=== PATIENT | female | born 1955 | race Caucasian/White ===

== ENCOUNTER → 2017-01-29 | Outpatient (CLI) | payer BC ==
--- NOTE | 2017-01-30 11:45 | MM ---
Reason for exam: screening (asymptomatic). Last mammogram was performed 4 years and 11 months ago. History: Patient is postmenopausal and had first child at age 30. Family history of breast cancer in brother at age 61. Excisional biopsy of the right breast, 2002. Reductions of both breasts, 2001. Physical Findings: A clinical breast exam by your physician is recommended on an annual basis and results should be correlated with mammographic findings. MG Screening Mammo w CAD Bilateral CC and MLO view(s) were taken. Prior study comparison: March 04, 2012, bilateral digital screening mammo w/CAD. June 29, 2010, bilateral digital screening mammogram. There are scattered fibroglandular densities. No significant changes when compared with prior studies. ASSESSMENT: Benign, BI-RAD 2 RECOMMENDATION: Routine screening mammogram of both breasts in 1 year.
== END | disposition home or self-care (01) ==
LOC: RADMAMWWP 13:27
PROVIDERS: ATTEND Obstetrics & Gynecology
DX: Z12.31 Encounter for screening mammogram for malignant neoplasm of breast (principal)

== ENCOUNTER 2017-02-15 09:16 | Day surgery (SDC) | payer BC ==
[2017-02-14 08:32] VITALS: BMI 34.3
[~2017-02-15 09:16] MED LIST: LACTATED RINGERS 1,000 ML IV SCH
[2017-02-15 10:40] VITALS: TEMP 96.6
[2017-02-15] MEDS ORDERED: PROPOFOL 10 MG/ML 20 ML VIAL IV ONE (11:18)
[2017-02-15] MEDS ORDERED: LIDOCAINE 1% INJ 10MG/ML (20 ML MDV) ONE (11:18)
[2017-02-15] MEDS ORDERED: LIDOCAINE 1% 20 ML VIAL (10MG/ML) FOR IV START INTRADERMA ONE (11:19)
--- NOTE | 2017-02-15 11:40 | P.PCN ---
Date of Procedure: 02/15/17 Procedure(s) Performed: Brief history: Patient is a pleasant 62-year-old white female, scheduled for an elective upper endoscopy as well as colonoscopy as a part of evaluation of GERD and screening for colorectal neoplasia. Procedure performed: Esophagogastroduodenoscopy with biopsy Colonoscopy with snare polypectomy Preoperative diagnosis: GERD Screening for colon cancer Anesthesia: MAC Procedure: After informed consent was obtained from the patient was brought into the endoscopy unit and IV sedation was administered by anesthesia under continuous monitoring. Initially upper endoscopy was done. The Olympus GF 160 video endoscope was inserted inserted into the mouth and esophagus intubated without any difficulty and was gradually advanced into the stomach and duodenum and carefully examined. The bulb and second part of the duodenum appeared normal. The scope was then withdrawn into the stomach adequately insufflated with air and upon careful examination the antrum and body, cardia and fundus appeared normal. The scope was then withdrawn into the esophagus. The GE junction was located at 38 cm to the incisors. It appeared regular with superficial erosions consistent with LA grade B reflux esophagitis. Rest of the esophagus appeared normal and the patient tolerated the procedure well. At this time the patient continued to remain sedation. Initial digital rectal examination was normal. Olympus CF 160 video colonoscope was then inserted into the rectum and gradually advanced to the cecum without any difficulty. Careful examination was performed as the scope was gradually being withdrawn. The prep was excellent. In the base of the cecum there was a 1 cm flat polyp that was removed by snare polypectomy. The cecum, ascending colon, transverse colon, descending colon, sigmoid colon and rectum appeared normal. Retroflexion was performed in the rectum and no lesions were noted. Patient tolerated the procedure well. Impression: 1. Upper endoscopy revealed mild antral gastritis and LA grade B reflux esophagitis. 2. Colonoscopy revealed 1 cm cecal polyp status post polypectomy. Rest of the colon appeared normal. Recommendations: Findings of this examination were discussed with the patient as well as her family. she was advised to follow with the biopsy results. She will continue with Prilosec 20 mg daily and follow antireflux measures. If the biopsy of the colon polyp shows a tubular adenoma she can have a repeat colonoscopy in 5 years.
[2017-02-15 11:45] VITALS: RESP 16
[2017-02-15 12:13] VITALS: BP 124/73; PULSE 56
== END 2017-02-15 12:20 | disposition home or self-care (01) ==
LOC: ORWHC2ENDO 09:16
PROVIDERS: ATTEND Internal Medicine Gastroenterology
DX: Z12.11 Encounter for screening for malignant neoplasm of colon (principal); D12.0 Benign neoplasm of cecum; K21.0 Gastro-esophageal reflux disease with esophagitis; K29.50 Unspecified chronic gastritis without bleeding; Z79.899 Other long term (current) drug therapy
CPT/HCPCS: 88305; 88342; 45385; 43239; J2001; J2704

== ENCOUNTER → 2018-01-01 | Outpatient (CLI) | payer BC ==
[2018-01-01 10:03] LABS: INR 1.1 (<1.2); Partial Thromboplastin Time 25.1 sec (22.0-30.0); Prothrombin Time 10.3 sec (9.0-12.0)
[2018-01-01 10:07] LABS: Appearance,Urine Cloudy (Clear); Bacteria,Urine Rare /hpf; Bilirubin,Urine Negative (Negative); Blood,Urine Negative (Negative); Color,Urine Yellow; Glucose,Urine (UA) Negative (Negative); Ketones,Urine 2+ (Negative); Leukocyte Esterase,Urine Small (Negative); Mucus,Urine Few /hpf; PH, Urine 5.5 (5.0-8.0); Protein,Urine Trace (Negative); RBC,Urine 6 /hpf (0-5); Specific Gravity,Urine 1.016 (1.001-1.035); Squamous Epithelial Cell,Urine 7 /hpf (0-4); WBC,Urine 6 /hpf (0-5)
[2018-01-01 11:05] LABS: ALT 23 U/L (9-52); AST 24 U/L (14-36); Albumin 4.4 g/dL (3.5-5.0); Alkaline Phosphatase 97 U/L (38-126); Anion Gap 15 mmol/L; Blood Urea Nitrogen 12 mg/dL (7-17); Calcium 10.5 mg/dL (8.4-10.2); Carbon Dioxide 25 mmol/L (22-30); Chloride 104 mmol/L (98-107); Glucose 91 mg/dL (74-99); Potassium 4.9 mmol/L (3.5-5.1); Sodium 144 mmol/L (137-145); Total Bilirubin 0.4 mg/dL (0.2-1.3); Total Protein 7.8 g/dL (6.3-8.2)
== END | disposition home or self-care (01) ==
LOC: LABPAT 08:32
PROVIDERS: ATTEND Orthopaedic Surgery
DX: Z01.812 Encounter for preprocedural laboratory examination (principal)
CPT/HCPCS: 36415; 80053; 81001; 85610; 85730; 87070

== ENCOUNTER → 2018-01-01 | Outpatient (CLI) | payer BC ==
[2018-01-01 09:58] LABS: Basophils % (A) 0 %; Eosinophils # (A) 0.2 k/uL (0-0.7); Eosinophils % (A) 2 %; HCT 44.4 % (34.0-46.0); HGB 14.3 gm/dL (11.4-16.0); Lymphocytes # (A) 3.2 k/uL (1.0-4.8); Lymphocytes % (A) 42 %; MCH 27.8 pg (25.0-35.0); MCHC 32.2 g/dL (31.0-37.0); MCV 86.3 fL (80.0-100.0); Mean Platelet Volume 8.4; Monocytes # (A) 0.3 k/uL (0-1.0); Monocytes % (A) 4 %; Neutrophils # (A) 3.9 k/uL (1.3-7.7); Neutrophils % (A) 50 %; Platelet Count 299 k/uL (150-450); RBC 5.14 m/uL (3.80-5.40); RDW 13.5 % (11.5-15.5); WBC 7.7 k/uL (3.8-10.6)
== END | disposition home or self-care (01) ==
LOC: LABWHC1 08:35
PROVIDERS: ATTEND Family Medicine
DX: Z01.812 Encounter for preprocedural laboratory examination (principal); E78.5 Hyperlipidemia, unspecified; K21.9 Gastro-esophageal reflux disease without esophagitis
CPT/HCPCS: 36415; 80061; 83735; 85025

== ENCOUNTER 2018-01-13 10:56 | Day surgery (SDC) | payer BC ==
[2018-01-03 14:11] VITALS: BMI 29.2
[~2018-01-13 10:56] MED LIST changes: +BISACODYL 10 MG SUPP RECTAL PRN; +DIAZEPAM 5 MG TAB PO PRN; +HYDROcodone/APAP 5-325MG 1 EACH TAB PO PRN; -LACTATED RINGERS 1,000 ML IV SCH; +MAGNESIUM HYDROXIDE 2,400 MG/10 ML CUP PO PRN; +MELOXICAM 7.5 MG TAB PO ONE; +MIDAZOLAM 2 MG/2 ML VIAL IV PRN; +MORPHINE SULFATE/PF 10MG/10ML VL IVP PRN; +NA PHOS,M-B/NA PHOS,DI-BA 133 ML ENEMA RECTAL PRN; +NALOXONE 0.4 MG/ML 1 ML VIAL IV PRN; +ONDANSETRON 4 MG/2 ML VIAL IVP PRN; +ROPIVACAINE 246.25 MG, EPINEPHrine 0.5 MG, KETOROLAC 30 MG, cloNIDine HCL/PF 80 MCG, WA... MISCELLANE ONE; +SCOPOLAMINE 1.5MG/72HR PATCH TRANSDERM ONE; +TRANEXAMIC ACID 1,000 MG in SODIUM CHLORIDE 0.9% 50 ML IVPB ONE; +ceFAZolin IN SWFI 2 GM/20 ML SYRINGE IVP ONE; +fentaNYL (PF) 50 MCG/ML 2 ML AMP IV PRN; +hydrOXYzine PAMOATE 25 MG CAP PO PRN
[2018-01-13] MEDS: LACTATED RINGERS 1,000 ML IV SCH (11:22)
[2018-01-13] MEDS ORDERED: LIDOCAINE 1% 20 ML VIAL (10MG/ML) FOR IV START INTRADERMA ONE (11:23)
[2018-01-13] MEDS: ACETAMINOPHEN TAB 500 MG TAB PO ONE ×2 (11:39→16:52)
[2018-01-13] MEDS: ONDANSETRON 4 MG/2 ML VIAL IVP ONE ×2 (11:41→16:53)
[2018-01-13] MEDS: DEXAMETHASONE SOD PHOSPHATE 10 MG/ML 1 ML VIAL IV ONE ×2 (11:41→16:53)
[2018-01-13] MEDS ORDERED: ROPIVACAINE 1,100 MG, SODIUM CHLORIDE 0.9% 330 ML MISCELLANE PRN ×2 (12:56)
[2018-01-13] MEDS ORDERED: MIDAZOLAM 2 MG/2 ML VIAL ONE (12:59)
[2018-01-13] MEDS ORDERED: PROPOFOL 10 MG/ML 20 ML VIAL IV ONE (12:59)
[2018-01-13] MEDS ORDERED: TRANEXAMIC ACID 1,000 MG/10 ML VIAL ONE (12:59)
[2018-01-13] MEDS ORDERED: SODIUM CHLORIDE 0.9% 100 ML BAG ONE (12:59)
[2018-01-13] MEDS ORDERED: ePHEDrine SULFATE/0.9% NACL/PF 50 MG/5 ML SYRINGE IV ONE (12:59)
[2018-01-13] MEDS ORDERED: fentaNYL (PF) 50 MCG/ML 2 ML AMP ONE (12:59)
--- NOTE | 2018-01-13 12:59 | P.ONQ ---
Anesthesiology Proc Note - PNB - Peripheral Nerve Block Performed Left Adductor Canal Indication: Acute Post-Operative Pain, Dx/Pain Location (Left Knee) Sedation Type: Sedate with meaningful contact maintained Preparation: Sterile Dressing Position: Supine Catheter: Indwelling Needle Types: Other (see comment) (Sara) Needle Size: 100mm (4") Needle Gauge: 18 Injectate: 0.5% Ropivacaine (see comment for volume) (30 cc) Pain Paresthesia on Injection Noted: No Resistance on Injection: Normal Events: Uneventful and Well Tolerated
[2018-01-13] MEDS ORDERED: ceFAZolin 3,000 MG in SODIUM CHLORIDE 0.9% IRRIGATIO 3,000 ML IRRIGATION ONE (13:27)
--- NOTE | 2018-01-13 14:22 | P.OP ---
Date of Procedure: 01/13/18 Preoperative Diagnosis: Severe osteoarthritis left knee Postoperative Diagnosis: Severe osteoarthritis left knee Procedure(s) Performed: Left total knee arthroplasty Implants: Reyes [employer] Nephew Oxinium femoral component size 4, left Reyes [employer]hew Lily II left nonporous tibial baseplate size 4 Reyes [employer] Nephew size 13 mm Legion XLPE high flexion articular insert, size 3-4 Reyes [employer]hew Lily II resurfacing patellar component, 32 mm All components were cemented using Rachel bone cement.. The articulation is Oxinium on polyethylene. Anesthesia: spinal Surgeon: Nahum Ramon Fitting Supervisor #1: Lizzeth Tracey Estimated Blood Loss (ml): 50 Pathology: other (Bone and cartilage) Condition: stable Disposition: PACU Indications for Procedure: After failure of conservative treatment we discussed the surgical and nonsurgical treatment options at length. Patient wishes to proceed with a total knee arthroplasty. Complications specific to this procedure were discussed at length, including but not limited to infection, bleeding, stiffness , and nerve injury. Patient is aware of all these complications and informed consent was obtained Operative Findings: The operative findings are consistent with severe osteoarthritis of the left knee Description of Procedure: Patient was seen in the preoperative area consent was reviewed and operative site was marked with a skin marker. An adductor canal pain catheter was placed by anesthesia in the preoperative area. Patient was then brought to the operating room and given preoperative antibiotics intravenously. A spinal anesthetic was administered by the anesthesia department. A tourniquet was placed on the upper thigh and the lower extremity was prepped and draped in usual sterile fashion. A gram of transexamic acid was given. A universal timeout was then performed which confirmed the patient's name, surgical site, ALLERGIES, and consent. The lower extremity was then exsanguinated and tourniquet was inflated to 250 mmHg. A standard and anterior midline approach to the knee was performed. The skin and subcutaneous tissue was dissected down to the patellar tendon. A medial parapatellar arthrotomy was then performed. The knee was then extended, the patellar was everted, and the knee was again flexed. Anterior horns of both menisci were excised, and a release was performed to the posterior medial aspect of the knee. On gross visual inspection, there was complete loss of articular cartilage in the medial and patellofemoral joint spaces. There was also significant cartilage damage in the lateral compartment. There were multiple periarticular osteophytes which were then removed with a Ronguer. The femoral canal was then opened with the appropriate drill, and the intramedullary femoral cutting guide was then placed and set for 4 of valgus. The distal femoral cutting block was then pinned in place, and the distal femur was then cut. The cutting block was then removed and the cut was checked for flatness. Next, the sizing guide was then placed and set for 3 external rotation based off of the epicondylar axis and Whitesides line. After the femur was sized, the appropriate 4-in-1 cutting block was then pinned in place. The anterior condyles were cut without notching. The posterior and chamfer cuts were performed while protecting the collateral ligaments. The cutting block was then removed, and the femoral canal was plugged with autologous bone. Attention was then directed to the tibia. The remaining ACL was removed with a Ronguer, and the tibia was then gently subluxed forward with a large bent knee retractor. Any remaining menisci was excised. The posterior lateral corner was cauterized in order to cauterize the lateral geniculate artery. The extra medullary tibial cutting guide was then placed, set for the appropriate rotation , slope, and depth of resection. The proximal tibia cutting guide was then pinned in place. Proximal tibia was then cut and sized. Next trials were then placed with the appropriate-sized insert. The knee was able to fully extend and flex to 130 and was stable throughout all range of motion. The knee was then extended, patella everted. Patella was then measured, and then using an osteotomy guide, the patella was cut at the appropriate level. The patella was then measured and drilled and the patella trial was then placed. The knee was then taken through range of motion with the patella trial and the patella tracked normally. The knee was then extended patella trial was then removed and the patella was everted. Knee was then flexed and lug holes were drilled through the femoral trial and the femoral trial was then removed. The tibial was then exposed, and the tibial broach guide was then pinned in place after it was set for the appropriate rotation to allow for the most coverage without overhang. The tibia was then reamed and broached. The cut surfaces of bone were then irrigated with pulsatile lavage. The posterior structures were injected with the ropivacaine solution. The knee was also irrigated with Irrisept solution. The components were then opened, the cement was mixed, and the components were then cemented in place. The cement was allowed to harden with the knee in full extension. While the cement was hardening, the remaining soft tissues were then injected with a ropivacaine solution, which consisted of 246.25 mg of ropivacaine, 0.5 mg of epinephrine, 30 mg of Toradol, 80 g of clonidine, and 48.45 mL of sterile water, for a total of 100 mL of fluid injected. After the cemented hardened. The tourniquet was released, and hemostasis was obtained. A second gram of transexamic acid was given. The knee was again irrigated. The knee was again taken through range of motion and found to be stable throughout all range of motion of 0-130 , and the patella tracked normally. The fascia was then closed with #2 strata fix suture. The subcutaneous tissue was closed with 3-0 Vicryl and 3-0 strata fix. Dermabond glue was used for the skin and placed with the knee in flexion. The patient was placed in a sterile silver dressing. Patient was then transferred to recovery room in stable condition. The microbiology lab assistant ISIS Huff was required due the complexity surgery and the need for a skilled rn medical surgical. She assisted in positioning, draping, retraction, and closure of the wound.
--- NOTE | 2018-01-13 15:25 | XR ---
Limited left knee HISTORY: Postop 2 views of the left knee No comparisons Patient is status post left knee arthroplasty. There is anatomic alignment. Bone mineralization is re duced. Lucency in the soft tissues compatible with postop state. IMPRESSION: Orthopedic follow-up.
[2018-01-13] MEDS: SODIUM CHLORIDE 0.9% 1,000 ML IV SCH ×2 (16:55→17:30)
[2018-01-13] MEDS: HYDROcodone/APAP 5-325MG 1 EACH TAB PO PRN (17:29)
[2018-01-13] MEDS ORDERED: SENNOSIDES-DOCUSATE SODIUM 1 EACH TAB PO SCH (21:00)
[2018-01-13] MEDS: ASPIRIN 325 MG TAB PO SCH (21:24)
[2018-01-13] MEDS: ceFAZolin IN SWFI 2 GM/20 ML SYRINGE IVP SCH (21:25)
[2018-01-14] MEDS: ceFAZolin IN SWFI 2 GM/20 ML SYRINGE IVP SCH (06:09)
[2018-01-14] MEDS: HYDROcodone/APAP 5-325MG 1 EACH TAB PO PRN ×2 (06:10→11:57)
--- NOTE | 2018-01-14 06:19 | P.CONS ---
History of Present Illness - Reason for Consult Consult date: 01/14/18 GERD Requesting physician: Nahum Ramon - Chief Complaint left knee pain - History of Present Illness Patient is a 62-year-old female with past medical history of arthritis , acid reflux, varicose veins, and elevated cholesterol who presented for elective left total knee arthroplasty. She underwent the procedure on 01/13/18 without any immediate postoperative complications. We're asked to consult for management of her acid reflux. Patient seen and examined at bedside. She states her pain has been very well- controlled with her On-Q pain pump. She states she did not have this with her right knee replacement helped greatly. She is already been up and walking around. She does not have any nausea, vomiting, diarrhea, or shortness of breath. She plans on going home with home health with [facility]. She was not sick or ill prior to surgery. She had tried conservative therapy for her left knee pain, but this failed so she decided to proceed with surgery. She last saw her PCP Dr. Hutchison on 01/01/18. On review of preoperative blood work her cholesterol levels were elevated. She states that she knew this about 6 months ago and she has been working on dietary changes and exercise. She will continue to follow with Dr. Hutchison for this. Review of Systems General: no fever/chills, no rigors, no weight loss/weight gain, no unusual fatigue Eyes: no noticeable visual changes, no loss of vision ENT: no rhinorrhea, no congestion, no sore throat Cardiovascular: no chest pain, no palpitations, no preyncope/syncope, no edema Pulmonary: no shortness of breath, no wheezing, no cough Abdominal: no abdominal pain, no constipation, no diarrhea, no vomiting, no nausea Genitourinary: no dysuria, no urinary frequency, no unusual discharge/odor Neuro: no unusual paresthesias, no unusual paresis/paralysis, no headache Dermatologic: no unusual rashes, no unusual lesions, no unusual changes in nails Hematologic: no hemoptysis, no hematuria, no melena/hematochezia Psychiatric: no changes in mood or behaviors, no changes in sleep pattern Musculoskeletal: + Left knee pain Past Medical History Past Medical History: GERD/Reflux, Hyperlipidemia, Osteoarthritis (OA) Additional Past Medical History / Comment(s): VARICOSE VEINS, ARTHRITIS LEFT KNEE. History of Any Multi-Drug Resistant Organisms: None Reported Past Surgical History: Appendectomy, Section, Hysterectomy, Joint Replacement, Orthopedic Surgery, Tonsillectomy Additional Past Surgical History / Comment(s): RT KNEE ARTHROSCOPY, RT TOTAL KNEE. Past Anesthesia/Blood Transfusion Reactions: No Reported Reaction Past Psychological History: No Psychological Hx Reported Smoking Status: Never smoker Past Alcohol Use History: Occasional Past Drug Use History: None Reported - Past Family History Brother(s) Family Medical History: Cancer Additional Family Medical History / Comment(s): POLYCYSTIC KIDNEY DISEASE, breast cancer Sister(s) Family Medical History: Cancer Additional Family Medical History / Comment(s): MELANOMA, POLYCYSTIC KIDNEY DISEASE. Son(s) Family Medical History: Deep Vein Thrombosis (DVT) Medications and Allergies Home Medications Medication Instructions Recorded Confirmed Type Omeprazole 20 mg PO DAILY 02/14/17 01/13/18 History Calcium Carbonate [Calcium] 600 mg PO DAILY 01/03/18 01/13/18 History Cholecalciferol [Vitamin D3] 1,000 unit PO DAILY 01/03/18 01/13/18 History Allergies Allergy/AdvReac Type Severity Reaction Status Date / Time No Known Allergies Allergy Verified 01/13/18 10:57 Physical Exam Osteopathic Statement: *. No significant issues noted on an osteopathic structural exam other than those noted in the History and Physical/Consult. Vitals: Vital Signs Temp Pulse Pulse Pulse Resp BP BP 01/14/18 05:00 97.8 F 61 17 97/61 01/14/18 01:45 97.8 F 61 17 97/61 01/13/18 19:00 97.5 F L 71 16 105/64 01/13/18 17:15 79 106/71 01/13/18 17:00 70 110/60 01/13/18 16:45 66 101/65 01/13/18 16:30 66 106/69 01/13/18 16:15 66 101/65 01/13/18 16:00 67 16 100/65 01/13/18 15:45 69 102/64 01/13/18 15:30 97.6 F 66 16 93/56 01/13/18 15:24 65 16 103/64 01/13/18 15:10 65 16 109/59 01/13/18 14:55 67 16 107/55 01/13/18 14:40 97.5 F L 69 16 136/98 01/13/18 11:06 98.1 F 69 18 136/63 Pulse Ox 01/14/18 05:00 96 01/14/18 01:45 96 01/13/18 19:00 95 01/13/18 17:15 95 01/13/18 17:00 93 L 01/13/18 16:45 98 01/13/18 16:30 95 01/13/18 16:15 98 01/13/18 16:00 98 01/13/18 15:45 95 01/13/18 15:30 95 01/13/18 15:24 92 L 01/13/18 15:10 91 L 01/13/18 14:55 93 L 01/13/18 14:40 92 L 01/13/18 11:06 97 Intake and Output 01/13/18 01/13/18 01/14/18 14:59 22:59 06:59 Intake Total 801 540 Output Total 50 Balance 751 540 Intake: IV 801 0 Oral 540 Output: Estimated Blood Loss 50 Other: Weight 77.111 kg General: non toxic, no distress, appears at stated age, normal weight Derm: no unusual rashes/lesions no unusual ecchymoses, warm, dry Head: atraumatic, normocephalic, symmetric Eyes: EOMI, no lid lag, anicteric sclera, pupils equal round reactive to light ENT: Nose and ears atraumatic, no thrush, no pharyngeal erythema Neck: No thyromegaly, no cervical lymphadenopathy, trachea midline, supple Mouth: no lip lesion, mucus membranes moist Cardiovascular: S1S2 reg, no murmur, positive posterior tibial pulse bilateral, trace edema left knee and ankle, capillary refill less than 2 seconds Lungs: CTA bilateral, no rhonchi, no rales , no accessory muscle use Abdominal: soft, nontender to palpation, no guarding, no appreciable organomegaly, normal bowel sounds Ext: no gross muscle atrophy, muscle strength 5 out of 5 in upper extremities grossly, no contractures, Neuro: CN II-XI grossly intact, light touch intact all 4 extremities, finger to nose within normal limits, Psych: Alert, oriented, appropriate affect Assessment and Plan Assessment: Osteoarthritis status post left total knee arthroplasty -Plan is for aspirin twice daily for 4 weeks for DVT prophylaxis -Pain control -Plans are for home with home health. -Check postop CBC. Dyslipidemia -Continue dietary changes -Follow up with Dr. Hutchison in 6 months GERD -Continue with omeprazole Medically stable for discharge when appropriate per orthopedic surgery. Thank you for allowing us to participate in the care of this pleasant patient. We'll send notification to Dr. Hutchison's office.
[2018-01-14] MEDS ORDERED: PANTOPRAZOLE 40 MG TABLET PO SCH (07:30)
[2018-01-14 07:41] VITALS: BP 99/49; PULSE 63; RESP 14; TEMP 98.6
[2018-01-14] MEDS: LACTATED RINGERS 1,000 ML IV SCH (07:41)
[2018-01-14] MEDS: CHOLECALCIFEROL 1,000 UNIT TAB PO SCH (07:44)
[2018-01-14] MEDS: ASPIRIN 325 MG TAB PO SCH (07:44)
[2018-01-14 08:00] LABS: Basophils # (A) 0.1 k/uL (0-0.2); Basophils % (A) 0 %; Eosinophils # (A) 0.1 k/uL (0-0.7); Eosinophils % (A) 0 %; HCT 33.6 % (34.0-46.0); Lymphocytes # (A) 3.2 k/uL (1.0-4.8); Lymphocytes % (A) 23 %; MCH 28.5 pg (25.0-35.0); MCHC 33.1 g/dL (31.0-37.0); MCV 85.9 fL (80.0-100.0); Mean Platelet Volume 8.3; Monocytes # (A) 0.9 k/uL (0-1.0); Monocytes % (A) 6 %; Neutrophils # (A) 9.5 k/uL (1.3-7.7); Neutrophils % (A) 69 %; Platelet Count 247 k/uL (150-450); RBC 3.91 m/uL (3.80-5.40); RDW 13.5 % (11.5-15.5); WBC 13.8 k/uL (3.8-10.6)
[2018-01-14 08:08] LABS: HGB 11.1 gm/dL (11.4-16.0)
[2018-01-14] MEDS ORDERED: MELOXICAM 7.5 MG TAB PO SCH (09:00)
--- NOTE | 2018-01-14 09:53 | P.DS ---
Providers Expected date of discharge: 01/14/18 Attending physician: Nahum Ramon Consults: 01/13/18 10:44 Consult Physician Routine Consulting Provider: Indra Cobb Consult Reason/Comments: medical management Do you want consulting provider notified?: Yes Primary care physician: Silvana Hutchison MD - Discharge Diagnosis(es) (1) Primary osteoarthritis of left knee Current Visit: Yes Status: Acute (2) S/P total knee arthroplasty Current Visit: Yes Status: Acute Hospital Course: This is a 62-year-old female with known history of degenerative arthritis of the left knee. The patient presents for evaluation. After discussion and consideration patient elects to proceed with total knee arthroplasty. The patient is seen preoperatively by Dr. Ramon and medically cleared for surgery by their primary care physician. Patient is admitted to [facility] on 01/13/2018 for total knee arthroplasty. The procedures performed without complication or sequelae. The patient is doing well postoperatively. Labs and vital signs are stable on day of discharge. On day of discharge patient's knee incision is healing well. There is minimal erythema. There is no drainage noted at this time. There is minimal soft tissue swelling to the knee. Patient has full foot and ankle motion without difficulty or pain. Neurovascular status to the left lower extremity is intact. Patient is discharged home in good condition. Please see med rec for accurate list of home medications. Plan - Discharge Summary Discharge Rx Participant: No New Discharge Prescriptions: New Aspirin 325 mg PO BID #60 tab HYDROcodone/APAP 5-325MG [[place] 5-325] 1 - 2 tab PO Q4-6H PRN #90 tab PRN Reason: Pain Sennosides [Senokot] 1 tab PO BID #60 tablet No Action Omeprazole 20 mg PO DAILY Cholecalciferol [Vitamin D3] 1,000 unit PO DAILY Calcium Carbonate [Calcium] 600 mg PO DAILY Discharge Medication List Omeprazole 20 mg PO DAILY 02/14/17 [History] Calcium Carbonate [Calcium] 600 mg PO DAILY 01/03/18 [History] Cholecalciferol [Vitamin D3] 1,000 unit PO DAILY 01/03/18 [History] Aspirin 325 mg PO BID #60 tab 01/14/18 [Rx] HYDROcodone/APAP 5-325MG [[place] 5-325] 1 - 2 tab PO Q4-6H PRN #90 tab 01/14/18 [ Rx] Sennosides [Senokot] 1 tab PO BID #60 tablet 01/14/18 [Rx] Follow up Appointment(s)/Referral(s): Silvana Hutchison MD [Primary Care Provider] - 01/22/18 11:50 am Nahum Ramon DO [Doctor of Osteopathic Medicine] - 01/28/18 9:00 am ( Appointment set with ISIS Moreau) Ambulatory/Diagnostic Orders: Continuous Passive Motion (CPM) Machine [DME.AMB1] Time Frame: 3 Weeks, Location : Determined By Patient Activity/Diet/Wound Care/Special Instructions: Weightbearing as tolerated with a walker CPM 5-6h daily Leave dressing intact. May be removed by home care nurse in 10-14 days. May shower with dressing on. [facility] with questions or concerns [phone] Discharge Disposition: HOME WITH HOME HEALTH SERVICES
--- NOTE | 2018-01-14 10:48 | P.PN ---
Progress Note - Text Progress Note Date: 01/14/18 . Postoperative day # 1 status post total knee arthroplasty, under spinal anesthesia, and adductor canal catheter placed for postoperative analgesia, currently at ropivacaine 0.2% 8 mL per hour and continuous infusion, visual analogue scale is 3/10, patient using oral pain medication for breakthrough pain. Assessment and plan= Acute postoperative pain, adductor canal catheter for pain control, pain is well controlled we'll continue the same management.
[2018-01-14] MEDS ORDERED: HYDROmorphone 2 MG TAB PO PRN ×2 (11:14→11:15)
[2018-01-14] MEDS ORDERED: CALCIUM CARBONATE 500 MG CHEWABLE PO SCH (12:00)
== END 2018-01-14 13:30 | disposition home health service (06) ==
LOC: OR 10:56 → EDSTATUS 12:55 → 3SUR 15:29 → OR 01-14 13:30
PROVIDERS: ATTEND Orthopaedic Surgery
DX: M17.12 Unilateral primary osteoarthritis, left knee (principal); M25.762 Osteophyte, left knee; G89.29 Other chronic pain; K21.9 Gastro-esophageal reflux disease without esophagitis; E78.5 Hyperlipidemia, unspecified; E66.9 Obesity, unspecified; Z68.29 Body mass index [BMI] 29.0-29.9, adult; M85.80 Other specified disorders of bone density and structure, unspecified site; Z79.899 Other long term (current) drug therapy
CPT/HCPCS: 97161; 85025; 88300; 73560; 27447; C1713; C1776; C1772; J2250; J0171; J1100; J2405; J0690 ×3; J3010; J1885; J2795; J2704; J0735

== ENCOUNTER → 2018-07-24 | Outpatient (CLI) | payer MEDICARE ==
--- NOTE | 2018-07-28 09:48 | MM ---
Reason for exam: screening (asymptomatic). Last mammogram was performed 1 year and 6 months ago. History: Patient is postmenopausal and had first child at age 30. Family history of breast cancer in brother at age 61. Excisional biopsy of the right breast, 2002. Reductions of both breasts, 2001. Physical Findings: A clinical breast exam by your physician is recommended on an annual basis and results should be correlated with mammographic findings. MG 3D Screening Mammo W/Cad Bilateral CC and MLO view(s) were taken. Prior study comparison: January 29, 2017, bilateral MG screening mammo w CAD. March 04, 2012, bilateral digital screening mammo w/CAD. There are scattered fibroglandular densities. No significant changes when compared with prior studies. ASSESSMENT: Benign, BI-RAD 2 RECOMMENDATION: Routine screening mammogram of both breasts in 1 year.
== END | disposition home or self-care (01) ==
LOC: RADMAMWWP 09:57
PROVIDERS: ATTEND Obstetrics & Gynecology
DX: Z12.31 Encounter for screening mammogram for malignant neoplasm of breast (principal); Z80.3 Family history of malignant neoplasm of breast
CPT/HCPCS: 77063; 77067

== ENCOUNTER → 2020-11-07 | Outpatient (CLI) | payer MEDICARE | END | disposition home or self-care (01) | LOC: LABWHC1 13:47 | PROVIDERS: ATTEND Family Medicine | DX: Z20.822 Contact with and (suspected) exposure to COVID-19 (principal); R53.83 Other fatigue; R09.81 Nasal congestion | CPT/HCPCS: U0003; C9803; U0005 ==

== ENCOUNTER → 2020-11-15 | Outpatient (CLI) | payer MEDICARE ==
--- NOTE | 2020-11-16 15:15 | BD ---
EXAMINATION TYPE: Axial Bone Density DATE OF EXAM: 11/15/2020 COMPARISON: NONE CLINICAL HISTORY: Height: 64 IN Weight: 210 LBS RISK FACTORS HISTORY OF: Active: YES Postmenopausal woman: TOTAL HYST AGE 43 Take estrogen and/or progesterone medications: NOT NOW How lon YEAR Hyperparathyroidism: YES MEDICATIONS: Additional Medications: OMEPRAZOLE, VIT D EXAM MEASUREMENTS: Bone mineral densitometry was performed using the [employer] System. Bone mineral density as measured about the Lumbar spine is: ----- L1-L4(G/cm2): 0.978 T Score Values are as follows: ----- L2: -2.1 ----- L3: -1.9 ----- L4: -1.9 ----- L1-L4: -1.7 Bone mineral density BASELINE Bone mineral density about the R hip (g/cm2): 0.767 Bone mineral density about the L hip (g/cm2): 0.794 T Score values are as follows: -----R Neck: -1.9 -----L Neck: -1.8 -----R Total: -1.4 -----L Total: -1.5 Bone mineral density BASELINE IMPRESSION: Osteopenia (T Score between -2.5 and -1). There is slightly increased risk of fracture and the patient may be considered for treatment. Re-Screen 2-5 years. NOTE: T-SCORE=SD OF THE YOUNG ADULT MEAN.
== END | disposition home or self-care (01) ==
LOC: RADBDWWP 16:11
PROVIDERS: ATTEND Family Medicine
DX: M85.80 Other specified disorders of bone density and structure, unspecified site (principal)
CPT/HCPCS: 77080

== ENCOUNTER → 2020-12-05 | Outpatient (CLI) | payer MEDICARE ==
--- NOTE | 2020-12-06 11:15 | MM ---
Reason for exam: screening (asymptomatic). Last mammogram was performed 2 years and 4 months ago. History: Patient is postmenopausal and had first child at age 30. Family history of breast cancer in brother at age 61. Excisional biopsy of the right breast, 2002. Reductions of both breasts, 2001. Took hormonal contraceptives for 10 years. Took estrogen for 2 years. Physical Findings: A clinical breast exam by your physician is recommended on an annual basis and results should be correlated with mammographic findings. MG 3D Screening Mammo W/Cad Bilateral CC and MLO view(s) were taken. Prior study comparison: July 24, 2018, bilateral MG 3d screening mammo w/cad. January 29, 2017, bilateral MG screening mammo w CAD. There are scattered fibroglandular densities. There are benign appearing round calcifications bilaterally. There is no discrete abnormality. ASSESSMENT: Benign, BI-RAD 2 RECOMMENDATION: Routine screening mammogram of both breasts in 1 year.
== END | disposition home or self-care (01) ==
LOC: RADMAMWWP 08:35
PROVIDERS: ATTEND Family Medicine
DX: Z12.31 Encounter for screening mammogram for malignant neoplasm of breast (principal)
CPT/HCPCS: 77063; 77067

== ENCOUNTER → 2021-10-18 | Outpatient (CLI) | payer MEDICARE ==
[2021-10-18 19:09] LABS: Chol/HDL Ratio 3.72 Ratio; LDL Cholesterol,Calculated 163.8 mg/dL (0.0-131.0); VLDL Calculation 13.86 mg/dL (5.00-40.00)
== END | disposition home or self-care (01) ==
LOC: LABWHC1 12:53
PROVIDERS: ATTEND Family Medicine
DX: E78.2 Mixed hyperlipidemia (principal)
CPT/HCPCS: 36415; 80061

== ENCOUNTER 2022-02-03 19:31 | Emergency (ER) | payer MEDICARE ==
[2022-02-03 20:24] VITALS: TEMP 98.1
--- NOTE | 2022-02-03 20:58 | XR ---
EXAMINATION TYPE: XR hand complete LT DATE OF EXAM: 02/03/2022 COMPARISON: NONE HISTORY: Pain TECHNIQUE: 3 views FINDINGS: There is some spurring at the first carpometacarpal joint. Metacarpals are intact. I see no fracture nor dislocation. There is minor spurring at the DIP joints. IMPRESSION: No acute abnormality of the left hand. Minimal spurring.
[2022-02-03 21:58] VITALS: BP 137/78; PULSE 56; RESP 18
--- NOTE | 2022-02-03 22:06 | ED ---
Upper Extremity HPI - General Chief Complaint: Extremity Injury, Upper Stated Complaint: L hand finger lac. Time Seen by Provider: 02/03/22 21:34 Source: patient Mode of arrival: ambulatory Limitations: no limitations - History of Present Illness Initial Comments: This patient is a 66-year-old woman who presents to have evaluation of her left hand. Earlier today, patient had been on a ladder and then when she was getting down she fell landing on her left hand. She states that initially there was some pain which improved and she was doing okay area and later in the day she was getting increasing swelling and pain. Patient denies weakness or numbness throughout the hand and arm. No other injuries. She did note that there was a small laceration but there was not significant bleeding. She states her tetanus shot is up-to-date. MD Complaint: Injury to:: left, hand -: hour(s) Other Extremity Injury: Fingers: Left, Hand: Left Other Injuries: none Handedness: right Place: outdoors Improves With: none Worsens With: movement of extremity Context: fall Associated Symptoms: denies other symptoms Treatments Prior to Arrival: cold therapy - Related Data Home Medications Medication Instructions Recorded Confirmed Omeprazole 20 mg PO DAILY 02/14/17 01/13/18 Calcium Carbonate [Calcium] 600 mg PO DAILY 01/03/18 01/13/18 Cholecalciferol [Vitamin D3] 1,000 unit PO DAILY 01/03/18 01/13/18 Previous Rx's Medication Instructions Recorded Aspirin 325 mg PO BID #60 tab 01/14/18 HYDROcodone/APAP 5-325MG [[place] 1 - 2 tab PO Q4-6H PRN #90 tab 01/14/18 5-325] Sennosides [Senokot] 1 tab PO BID #60 tablet 01/14/18 Allergies Allergy/AdvReac Type Severity Reaction Status Date / Time No Known Allergies Allergy Verified 02/03/22 20:22 Review of Systems ROS Statement: Those systems with pertinent positive or pertinent negative responses have been documented in the HPI. ROS Other: All systems not noted in ROS Statement are negative. Musculoskeletal: Reports: as per HPI, joint swelling, arthralgia. Denies: back pain Neurological: Denies: headache, weakness, numbness, paresthesias Past Medical History Past Medical History: GERD/Reflux, Hyperlipidemia, Osteoarthritis (OA) History of Any Multi-Drug Resistant Organisms: None Reported Past Surgical History: Appendectomy, Section, Hysterectomy, Joint Replacement, Orthopedic Surgery, Tonsillectomy Additional Past Surgical History / Comment(s): RT KNEE ARTHROSCOPY, RT KNEE JOINT REPLACEMENT Past Anesthesia/Blood Transfusion Reactions: No Reported Reaction Past Psychological History: No Psychological Hx Reported Past Alcohol Use History: Occasional Past Drug Use History: None Reported - Past Family History Brother(s) Family Medical History: Cancer Additional Family Medical History / Comment(s): POLYCYSTIC KIDNEY DISEASE,breast cancer Sister(s) Family Medical History: Cancer Additional Family Medical History / Comment(s): MELANOMA, POLYCYSTIC KIDNEY DISEASE. Son(s) Family Medical History: Deep Vein Thrombosis (DVT) General Exam Limitations: no limitations General appearance: alert, in no apparent distress Head exam: Present: atraumatic, normocephalic Cardiovascular Exam: Present: other (Normal pulses throughout the left hand. Normal capillary refill.) Extremities exam: Present: full ROM, tenderness, normal capillary refill, other (Patient has contusion and ecchymosis centered over the left fourth metacarpal. Palpation does not reveal severe tenderness there though there is mild tenderness throughout. No palpable deformity. Normal alignment. Range of motion normal. No sensory or motor deficit.) Neurological exam: Present: alert. Absent: motor sensory deficit Skin exam: Present: warm, dry, normal color, other (Very small superficial laceration to the palmar aspect of the right hand, less than 1 cm.). Absent: rash Course Vital Signs 02/03/22 02/03/22 20:22 21:43 Temperature 98.1 F Pulse Rate 66 56 L Respiratory 16 18 Rate Blood Pressure 144/72 137/78 O2 Sat by Pulse 98 99 Oximetry Disposition Clinical Impression: Contusion of left hand Disposition: HOME SELF-CARE Condition: Good Instructions (If sedation given, give patient instructions): Hand Sprain (ED) Is patient prescribed a controlled substance at d/c from ED?: No Referrals: Wilmar Washington DO [Primary Care Provider] - 1-2 days
[2022-02-03] MEDS ORDERED: BACITRACIN OINT 1 EACH PACKET TOPICAL ONE (22:15)
== END 2022-02-03 22:41 | disposition home or self-care (01) ==
LOC: EC 19:31
DX: S60.222A Contusion of left hand, initial encounter (principal); K21.9 Gastro-esophageal reflux disease without esophagitis; Z79.83 Long term (current) use of bisphosphonates; W11.XXXA Fall on and from ladder, initial encounter
CPT/HCPCS: 99283

== ENCOUNTER → 2022-03-21 | Outpatient (CLI) | payer MEDICARE ==
--- NOTE | 2022-03-22 10:05 | MM ---
Reason for Exam: Screening (asymptomatic). Last mammogram was performed 1 year(s) and 3 month(s) ago. Patient History: Menarche at age 9. First Full-Term at age 30. Late child-bearing (after 30). Left ovary removed at age 43. Right ovary removed at age 43. Hysterectomy at age 43. Postmenopausal. Patient used Estrogen for 2 years. Patient used Hormonal Contraceptives for 10 years. 2001, Bilateral Reduction. 2002, Excisional Biopsy on the Right side. Brother had breast cancer, age 61. Risk Values: Akilah 5 year model risk: 4.5%. NCI Lifetime model risk: 13.4%. Film Views: Bilateral CC views were taken. Bilateral MLO views were taken. Prior Study Comparison: 01/29/2017 Bilateral Screening Mammogram, [facility]. 07/24/2018 Bilateral Screening Mammogram, [facility]. 12/05/2020 Bilateral Screening Mammogram, [facility]. Tissue Density: There are scattered fibroglandular densities. Findings: Analyzed By CAD. There is no suspicious group of microcalcifications or new suspicious mass in either breast. Overall Assessment: Benign, BI-RAD 2 Management: Screening Mammogram of both breasts in 1 year. A clinical breast exam by your physician is recommended on an annual basis and results should be correlated with mammographic findings. Electronically signed and approved by: Harlan North M.D. Radiologis
== END | disposition home or self-care (01) ==
LOC: RADMAMWWP 07:44
PROVIDERS: ATTEND Family Medicine
DX: Z12.31 Encounter for screening mammogram for malignant neoplasm of breast (principal)
CPT/HCPCS: 77063; 77067

== ENCOUNTER 2022-03-28 07:43 | Day surgery (SDC) | payer MEDICARE ==
[2022-03-23 12:37] VITALS: BMI 24.9
[~2022-03-28 07:43] MED LIST changes: -BISACODYL 10 MG SUPP RECTAL PRN; -DIAZEPAM 5 MG TAB PO PRN; -HYDROcodone/APAP 5-325MG 1 EACH TAB PO PRN; +LACTATED RINGERS 1,000 ML IV SCH; +LIDOCAINE 1% (10MG/ML) FOR IV START INTRADERMA PRN; -MAGNESIUM HYDROXIDE 2,400 MG/10 ML CUP PO PRN; -MELOXICAM 7.5 MG TAB PO ONE; -MIDAZOLAM 2 MG/2 ML VIAL IV PRN; -MORPHINE SULFATE/PF 10MG/10ML VL IVP PRN; -NA PHOS,M-B/NA PHOS,DI-BA 133 ML ENEMA RECTAL PRN; -NALOXONE 0.4 MG/ML 1 ML VIAL IV PRN; -ONDANSETRON 4 MG/2 ML VIAL IVP PRN; -ROPIVACAINE 246.25 MG, EPINEPHrine 0.5 MG, KETOROLAC 30 MG, cloNIDine HCL/PF 80 MCG, WA... MISCELLANE ONE; -SCOPOLAMINE 1.5MG/72HR PATCH TRANSDERM ONE; -TRANEXAMIC ACID 1,000 MG in SODIUM CHLORIDE 0.9% 50 ML IVPB ONE; -ceFAZolin IN SWFI 2 GM/20 ML SYRINGE IVP ONE; -fentaNYL (PF) 50 MCG/ML 2 ML AMP IV PRN; -hydrOXYzine PAMOATE 25 MG CAP PO PRN
[2022-03-28 08:07] VITALS: RESP 16; TEMP 97.4
[2022-03-28] MEDS ORDERED: PROPOFOL 10 MG/ML 20 ML VIAL IV ONE (08:43)
--- NOTE | 2022-03-28 08:58 | P.PCN ---
Date of Procedure: 03/28/22 Procedure(s) Performed: BRIEF HISTORY: Patient is a 67-year-old pleasant white female scheduled for an elective colonoscopy as a part of evaluation of prior history of colon polyps. PROCEDURE PERFORMED: Colonoscopy. PREOPERATIVE DIAGNOSIS: History of colon polyps. IV sedation per Anesthesia. PROCEDURE: After informed consent was obtained, the patient, was brought into the endoscopy unit. IV sedation was administered by Anesthesia under continuous monitoring. Digital rectal examination was normal. Initially the Olympus CF-160 flexible video colonoscope was then inserted in the rectum, gradually advanced into the cecum without any difficulty. Careful examination was performed as the scope was gradually being withdrawn. Ileocecal valve and the appendiceal orifice were visualized and appeared normal. Prep was excellent. Mucosa of the cecum, ascending colon, transverse colon, descending colon, sigmoid colon, and rectum appeared normal. Scattered sigmoid diverticulosis Retroflexion was performed in the rectum and no lesions were seen. The patient tolerated the procedure well. IMPRESSION: Normal-appearing colon from rectum to cecum with no evidence of colorectal neoplasia Scattered sigmoid diverticulosis. RECOMMENDATIONS: Findings of this examination were discussed with the patient as well as her family. She was advised to have a repeat colonoscopy in 5 years from now was of the prior history of colon polyps..
[2022-03-28 09:17] VITALS: BP 116/71; PULSE 50
== END 2022-03-28 09:29 | disposition home or self-care (01) ==
LOC: ORWHC2ENDO 07:43
PROVIDERS: ATTEND Internal Medicine Gastroenterology
DX: Z12.11 Encounter for screening for malignant neoplasm of colon (principal); K57.30 Diverticulosis of large intestine without perforation or abscess without bleeding; K21.9 Gastro-esophageal reflux disease without esophagitis; Z86.010 Personal history of colon polyps; Z79.899 Other long term (current) drug therapy; Z90.710 Acquired absence of both cervix and uterus
CPT/HCPCS: J2704; G0105; 45378

== ENCOUNTER → 2023-03-26 | Outpatient (CLI) | payer MEDICARE ==
--- NOTE | 2023-03-26 11:29 | BD ---
EXAMINATION TYPE: Axial Bone Density DATE OF EXAM: 03/26/2023 CLINICAL HISTORY: 68 years old Female. ICD-10 CODE: M85.80 OTH DISRD OF BONE DENSITY AND STRUCTURE, UNSPECIFIED Height: 64 Weight: 186.2 FRAX RISK QUESTIONS: Alcohol (3 or more units per day): no Family History (Parent hip fracture): no Glucocorticoids (More than 3mos): no (Ex: prednisone, prednisolone, methylprednisolone, dexamethasone, and hydrocortisone). History of Fracture in Adulthood: no Secondary Osteoporosis: 1. Type 1 Diabetes: no 2. Hyperthyroidism: no 3. Menopause before 45: no 4. Malnutrition: no 5. Chronic liver disease: no Rheumatoid Arthritis: no Current Tobacco Use: no RISK FACTORS HISTORY OF: Surgery to Spine/Hip(right/left)/Wrist (right/left): no Family History of Osteoporosis: no Active: yes Diet low in dairy products/other sources of calcium: no Postmenopausal woman: yes Lost more than 2 inches in height since high school: no Hyperparathyroidism: yes MEDICATIONS: Additional History: EXAM MEASUREMENTS: Bone mineral densitometry was performed using the [employer] System. Bone mineral density as measured about the Lumbar spine is: ----- L1-L4(G/cm2): 0.952 T Score Values are as follows: ----- L1: -0.4 ----- L2: -2.3 ----- L3: -2.7 ----- L4: -2.0 ----- L1-L4: -1.9 Z Score Values are as follows: ----- L1: 0.6 ----- L2: 1.2 ----- L3: 1.7 ----- L4: 1.0 ----- L1-L4: -0.9 Bone mineral density has: decreased -2.7 % since study of: 11.15.2020 Bone mineral density about the R hip (g/cm2): 0.806 Bone mineral density about the L hip (g/cm2): 0.789 T Score values are as follows: -----R Neck: -1.9 -----L Neck: -1.7 -----R Total: -1.6 -----L Total: -1.7 Z Score values are as follows: -----R Neck: -0.7 -----L Neck: -0.5 -----R Total: -0.6 -----L Total: -0.7 Bone mineral density has: increased 3.5 % since study of: 11.15.2020 FRAX%s: The graph provided illustrates a 11.0% chance for a major osteoporotic fx and a 2.0% chance f or the hips probability for fx in 10 years time. IMPRESSION: Osteopenia (T Score between -2.5 and -1). There is slightly increased risk of fracture and the patient may be considered for treatment. Re-Screen 2-5 years. NOTE: T-SCORE=SD OF THE YOUNG ADULT MEAN.
--- NOTE | 2023-03-27 19:14 | MM ---
Reason for Exam: Screening (asymptomatic). Last screening mammogram was performed 12 month(s) ago. Patient History: Menarche at age 9. First Full-Term at age 30. Late child-bearing (after 30). Left ovary removed at age 43. Right ovary removed at age 43. Hysterectomy at age 43. Postmenopausal. Patient used Estrogen for 2 years. Patient used Hormonal Contraceptives for 10 years. 2001, Bilateral Reduction. 2002, Excisional Biopsy on the Right side. Brother had breast cancer, age 61. Risk Values: Akilah 5 year model risk: 4.5%. NCI Lifetime model risk: 12.8%. Prior Study Comparison: 07/24/2018 Bilateral Screening Mammogram, [facility]. 12/05/2020 Bilateral Screening Mammogram, [facility]. 03/21/2022 Bilateral MG 3D screening mammo w/cad, [facility]. Tissue Density: There are scattered fibroglandular densities. Findings: Analyzed By CAD. There is no suspicious group of microcalcifications or new suspicious mass in either breast. Overall Assessment: Negative, BI-RAD 1 Management: Screening Mammogram of both breasts in 1 year. See note below in regards to patient's increased 5 year Akilah score. Patient should continue monthly self-breast exams. A clinical breast exam by your physician is recommended on an annual basis. This exam should not preclude additional follow-up of suspicious palpable abnormalities. Note on Akilah scores and lifetime risk: 1. A Akilah score greater than 3% is considered moderate risk. If this is the case, consider specialist referral to assess eligibility for a risk reducing agent. 2. If overall lifetime risk for the development of breast cancer is 20% or higher, the patient may qualify for future screening with alternating mammogram and breast MRI. Electronically signed and approved by: Shital Abbott M.D. Radiologist
== END | disposition home or self-care (01) ==
LOC: RADMAMWWP 10:12
PROVIDERS: ATTEND Family Medicine
DX: Z12.31 Encounter for screening mammogram for malignant neoplasm of breast (principal); M81.0 Age-related osteoporosis without current pathological fracture; M85.89 Other specified disorders of bone density and structure, multiple sites; Z78.0 Asymptomatic menopausal state; Z80.3 Family history of malignant neoplasm of breast
CPT/HCPCS: 77063; 77067; 77080

== ENCOUNTER → 2024-06-19 | Outpatient (CLI) | payer MEDICARE ==
--- NOTE | 2024-07-05 12:47 | MM ---
Reason for Exam: Screening (asymptomatic). Last mammogram was performed 1 year(s) and 3 month(s) ago. Patient History: Menarche at age 9. First Full-Term at age 30. Late child-bearing (after 30). Left ovary removed at age 43. Right ovary removed at age 43. Hysterectomy at age 43. Postmenopausal. Patient used Estrogen for 2 years. Patient used Hormonal Contraceptives for 10 years. 2001, Bilateral Reduction. 2002, Excisional Biopsy on the Right side. Brother had breast cancer, age 61. Risk Values: Akilah 5 year model risk: 4.6%. NCI Lifetime model risk: 12.2%. Prior Study Comparison: 12/05/2020 Bilateral Screening Mammogram, [facility]. 03/21/2022 Bilateral MG 3D screening mammo w/cad, [facility]. 03/26/2023 Bilateral MG 3D screening mammo w/cad, [facility]. Tissue Density: The breasts are almost entirely fatty. Findings: Analyzed By CAD. Right breast: There is no suspicious group of microcalcifications or new suspicious mass. Left breast: There is no suspicious group of microcalcifications or new suspicious mass. Overall Assessment: Negative, BI-RAD 1 Management: Screening Mammogram of both breasts in [address] [facility] will attempt to contact patient to return for supplemental views and ultrasound if indicated. Patient should continue monthly self-breast exams. A clinical breast exam by your physician is recommended on an annual basis. This exam should not preclude additional follow-up of suspicious palpable abnormalities. Note on Akilah scores and lifetime risk: 1. A Akilah score greater than 3% is considered moderate risk. If this is the case, consider specialist referral to assess eligibility for a risk reducing agent. 2. If overall lifetime risk for the development of breast cancer is 20% or higher, the patient may qualify for future screening with alternating mammogram and breast MRI. Electronically signed and approved by: All Ho DO
== END | disposition home or self-care (01) ==
LOC: RADMAMWWP 11:45
PROVIDERS: ATTEND Family Medicine
DX: Z12.31 Encounter for screening mammogram for malignant neoplasm of breast (principal); Z78.0 Asymptomatic menopausal state; Z80.3 Family history of malignant neoplasm of breast; R92.313 Mammographic fatty tissue density, bilateral breasts
CPT/HCPCS: 77063; 77067

== ENCOUNTER 2025-03-02 11:30 | Emergency (ER) | payer MEDICARE ==
[2025-03-02 11:34] VITALS: RESP 16
--- NOTE | 2025-03-02 12:03 | ED ---
Fall HPI - General Chief Complaint: Fall Stated Complaint: Fall-head injury Time Seen by Provider: 03/02/25 11:37 Source: patient, RN notes reviewed Mode of arrival: wheelchair Limitations: no limitations - History of Present Illness Initial Comments: 70-year-old female presents emergency department complaint of trip and fall. Patient states her dog cut in front of her causing her to trip falling forward onto her face. Patient has an abrasion cross her nose, chin she states she is up-to-date on her tetanus. She does complain of moderate discomfort. Patient complains of mild headache without dizziness, neck pain. She has complaint of right hand discomfort. Patient denies any blood thinners. - Related Data Home Medications Medication Instructions Recorded Confirmed Omeprazole 20 mg PO DAILY 02/14/17 03/28/22 Ergocalciferol [Vitamin D2 (1250 1,250 mcg PO TU 03/23/22 03/28/22 Mcg = 54540 Iu)] Allergies Allergy/AdvReac Type Severity Reaction Status Date / Time No Known Allergies Allergy Verified 03/02/25 11:34 Review of Systems ROS Statement: Those systems with pertinent positive or pertinent negative responses have been documented in the HPI. ROS Other: All systems not noted in ROS Statement are negative. Past Medical History Past Medical History: GERD/Reflux, Hyperlipidemia, Osteoarthritis (OA) History of Any Multi-Drug Resistant Organisms: None Reported Past Surgical History: Appendectomy, Section, Hysterectomy, Joint Replacement, Orthopedic Surgery, Tonsillectomy Additional Past Surgical History / Comment(s): RT KNEE ARTHROSCOPY, RT KNEE JOINT REPLACEMENT Past Anesthesia/Blood Transfusion Reactions: No Reported Reaction Past Psychological History: No Psychological Hx Reported Smoking Status: Never smoker - Past Family History Brother(s) Family Medical History: Cancer Additional Family Medical History / Comment(s): POLYCYSTIC KIDNEY DISEASE,breast cancer Sister(s) Family Medical History: Cancer Additional Family Medical History / Comment(s): MELANOMA, POLYCYSTIC KIDNEY DISEASE. Son(s) Family Medical History: Deep Vein Thrombosis (DVT) General Exam Limitations: no limitations General appearance: alert, in no apparent distress Head exam: Present: atraumatic, normocephalic, normal inspection Eye exam: Present: normal appearance, PERRL, EOMI. Absent: scleral icterus, conjunctival injection, periorbital swelling ENT exam: Present: mucous membranes moist, TM's normal bilaterally, normal external ear exam. Absent: normal exam (Abrasion across the nasal bridge, chin no deep lacerations), normal oropharynx Neck exam: Present: normal inspection, full ROM. Absent: tenderness, meningismus, lymphadenopathy Respiratory exam: Present: normal lung sounds bilaterally. Absent: respiratory distress, wheezes, rales, rhonchi, stridor Cardiovascular Exam: Present: regular rate, normal rhythm, normal heart sounds. Absent: systolic murmur, diastolic murmur, rubs, gallop, clicks Extremities exam: Present: other (Right hand tenderness across the 4th and 5th MCP region) Back exam: Present: full ROM. Absent: tenderness, muscle spasm, paraspinal tenderness, vertebral tenderness Neurological exam: Present: alert, oriented X3, CN II-XII intact, reflexes normal. Absent: motor sensory deficit Skin exam: Present: warm, dry, intact, normal color. Absent: rash Course Vital Signs 03/02/25 11:31 Temperature 97.7 F Pulse Rate 69 Respiratory 16 Rate Blood Pressure 137/66 O2 Sat by Pulse 98 Oximetry Medical Decision Making - Medical Decision Making Was pt. sent in by a medical professional or institution (, PA, SUPERVISOR FISHING, urgent care, hospital, or snf...) When possible be specific @ -No Did you speak to anyone other than the patient for history (EMS, parent, family, police, friend...)? What history was obtained from this source @ -No Did you review nursing and triage notes (agree or disagree)? Why? @ -I reviewed and agree with nursing and triage notes Were old charts reviewed (outside hosp., previous admission, EMS record, old EKG, old radiological studies, urgent care reports/EKG's, snf records)? Report findings @ -No old charts were reviewed Differential Diagnosis (chest pain, altered mental status, abdominal pain women, abdominal pain men, vaginal bleeding, weakness, fever, dyspnea, syncope, headache, dizziness, GI bleed, back pain, seizure, CVA, palpatations, mental health, musculoskeletal)? @ -[Fall, intracranial hemorrhage, cervical fracture, facial fracture, abrasion, hand fracture hand contusion EKG interpreted by me (3pts min.). @ -None X-rays interpreted by me (1pt min.). @ -X-ray right hand no acute fracture CT interpreted by me (1pt min.). @ -CT brain, C-spine, facial bones no acute fracture or intracranial hemorrhage, skull fracture, cervical fracture U/S interpreted by me (1pt. min.). @ -None done What testing was considered but not performed or refused? (CT, X-rays, U/S, labs)? Why? @ -None What meds were considered but not given or refused? Why? @ -None Did you discuss the management of the patient with other professionals (professionals i.e. , PA, SUPERVISOR FISHING, lab, RT, psych nurse, social services specialist, representative personal service, teacher, aerospace engineer officer armament, pillowcase maker)? Give summary @ -No Was smoking cessation discussed for >3mins.? @ -No Was critical care preformed (if so, how long)? @ -No Were there social determinants of health that impacted care today? How? (Homelessness, low income, unemployed, alcoholism, drug addiction, hylton sportation, low edu. Level, literacy, decrease access to med. care, usp, rehab)? @ -No Was there de-escalation of care discussed even if they declined (Discuss DNR or withdrawal of care, Hospice)? DNR status @ -No What co-morbidities impacted this encounter? (DM, HTN, Smoking, COPD, CAD, Cancer, CVA, ARF, Chemo, Hep., AIDS, mental health diagnosis, sleep apnea, morbid obesity)? @ -None Was patient admitted / discharged? Hospital course, mention meds given and route, prescriptions, significant lab abnormalities, going to OR and other pertinent info. @ -Patient presented for fall imaging was all negative patient is up-to-date on tetanus patient has noted abrasion patient is discharged in stable condition. Undiagnosed new problem with uncertain prognosis? @ -No Drug Therapy requiring intensive monitoring for toxicity (Heparin, Nitro, Insulin, Cardizem)? @ -No Were any procedures done? @ -No Diagnosis/symptom? @ -Fall, facial contusion, facial abrasion hand sprain Acute, or Chronic, or Acute on Chronic? @ -Acute Uncomplicated (without systemic symptoms) or Complicated (systemic symptoms)? @ -Uncomplicated Side effects of treatment? @ -No Exacerbation, Progression, or Severe Exacerbation? @ -No Poses a threat to life or bodily function? How? (Chest pain, [place], [place], pneumonia, PE, COPD, DKA, ARF, appy, cholecystitis, CVA, Diverticulitis, Homicidal, Suicidal, threat to staff... and all critical care pts) @ -No Disposition Clinical Impression: Fall, Facial abrasion, Facial contusion, Hand sprain Disposition: HOME SELF-CARE Condition: Stable Instructions (If sedation given, give patient instructions): Facial Contusion (ED) Additional Instructions: Please return to the Emergency Department if symptoms worsen or any other concerns. Is patient prescribed a controlled substance at d/c from ED?: No Referrals: Wilmar Washington DO [Primary Care Provider] - 1-2 days Time of Disposition: 12:47
[2025-03-02] MEDS: ACETAMINOPHEN TAB 500 MG TAB PO STA (12:21)
[2025-03-02] MEDS: BACITRACIN OINT 1 EACH PACKET TOPICAL ONE (12:22)
--- NOTE | 2025-03-02 12:31 | CT ---
EXAMINATION TYPE: CT brain cspine wo con, CT facial bones wo con CT DLP: 304.9 (accession [id number]), 718 (accession [id number]) mGycm, Automated exposure control for do se reduction was used. DATE OF EXAM: 03/02/2025 12:20 PM COMPARISON: None. CLINICAL INDICATION:Female, 70 years old with history of pain; FALL, NASAL LACERATION TECHNIQUE: Brain: Multiple axial CT images of the brain were obtained without IV contrast. Cspine: Axial CT images from the skull base to the inferior aspect of T2 we obtained without intraven ous contrast. Coronal and sagittal reformatted images were also reviewed. Facial bones; axial CT images of the facial bones were obtained without contrast and soft tissue and bone windows. Coronal and sagittal reformatted images were also reviewed. FINDINGS: Brain: Extra-axial spaces: No abnormal extra-axial fluid collections. Scattered falx calcifications. Ventricular system: Within normal limits Cerebral parenchyma: No acute intraparenchymal hemorrhage or mass effect. The solis-white junction is well differentiated. Partial distal morphology. Cerebellum: Unremarkable. Mass effect: No evidence of midline shift. Intracranial vasculature: Atherosclerotic calcifications of the intracranial vessels. Soft tissues: Normal. Calvarium: No depressed skull fracture. Paranasal sinuses and mastoid air cells: Minimal scattered mucosal thickening and or secretions. The mastoid air cells are clear. Visualized orbits: Orbital contents are intact. Cervical spine: Fracture: None. Osseous structures: Multilevel disc space narrowing with endplate sclerosis and anterior osteophytosi s. Fusion of the left C2-C3 facet joint. Multilevel facet arthropathy. Vertebral alignment: Degenerative grade 1 anterolisthesis of C2 on C3. Spinal canal/Neural Foramina: Disc bulges at C3-C4, C4-C5 and C5-C6 suggesting at least mild central canal stenosis. Facet joint uncovertebral joint arthropathy scattered throughout the cervical spine w ith varying degrees of neural foraminal stenosis. Neck soft tissues: Prevertebral soft tissues are within normal limits. Other: The airway is patent. The lung apices are clear. Facial Bones: Dental amalgam streak artifact which limits evaluation. There is no evidence of fracture, subluxation, dislocation, or significant soft tissue swelling. The orbital contents are unremarkable. The temporal-mandibular joints appear symmetric. Scattered paranas al sinus mucosal thickening. IMPRESSION: 1. No acute intracranial process. 2. No acute facial bone fracture. 3. No evidence of cervical spine fracture. 4. Mild multilevel degenerative disc disease. [facility], , 03/02/2025 12:29 PM
--- NOTE | 2025-03-02 12:32 | XR ---
EXAMINATION TYPE: XR hand complete RT DATE OF EXAM: 03/02/2025 12:21 PM INDICATION: Patient age:Female; 70 years old; Reason for study: pain; PHH. pain COMPARISON: None TECHNIQUE: Frontal, lateral and oblique views of the right hand were obtained. FINDINGS: Diffuse bone demineralization. No osseous erosions. Mild osteoarthritic changes of the hand involving the DIP and PIP joints with joint space narrowing and marginal osteophytosis. No acute oss eous pathology is identified. No evidence of soft tissue swelling. No radiopaque foreign body. IMPRESSION: 1. No acute osseous pathology. 2. Mild osteoarthritic changes. [facility], , 03/02/2025 12:30 PM
[2025-03-02 13:32] VITALS: BP 131/76; PULSE 66; TEMP 98
[2025-03-02] MEDS: ACET/COD 300 MG/30 MG STARTER PACK 6 TAB BTL PO STA (13:35)
== END 2025-03-02 13:46 | disposition home or self-care (01) ==
LOC: EC 11:30
DX: S00.81XA Abrasion of other part of head, initial encounter (principal); S00.83XA Contusion of other part of head, initial encounter; S63.91XA Sprain of unspecified part of right wrist and hand, initial encounter; W01.0XXA Fall on same level from slipping, tripping and stumbling without subsequent striking against object, initial encounter
CPT/HCPCS: 70450; 70486; 72125; 99284

== ENCOUNTER 2025-04-15 18:35 | Observation (INO) | payer MEDICARE ==
--- NOTE | 2025-04-15 18:50 | ED ---
General Adult HPI - General Chief complaint: Chest Pain Stated complaint: chest pain Time Seen by Provider: 04/15/25 18:45 Source: patient, RN notes reviewed Mode of arrival: ambulatory Limitations: no limitations - History of Present Illness Initial comments: Patient is a 70-year-old female present to the emergency department with concerns with chest discomfort. 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 Patient has an ache in her left upper chest with some radiation towards the shoulder. No history of similar symptoms previously. Discomfort is 5/10. Questionable associated dyspnea. No nausea. Patient did feel sweaty. - Related Data Home Medications Medication Instructions Recorded Confirmed Omeprazole 20 mg PO DAILY 02/14/17 03/28/22 Ergocalciferol [Vitamin D2 (1250 1,250 mcg PO TU 03/23/22 03/28/22 Mcg = 80031 Iu)] Allergies Allergy/AdvReac Type Severity Reaction Status Date / Time No Known Allergies Allergy Verified 04/15/25 18:41 Review of Systems ROS Statement: Those systems with pertinent positive or pertinent negative responses have been documented in the HPI. ROS Other: All systems not noted in ROS Statement are negative. Constitutional: Denies: fever Eyes: Denies: eye pain ENT: Denies: ear pain Respiratory: Reports: as per HPI. Denies: cough Cardiovascular: Reports: as per HPI, chest pain Endocrine: Denies: fatigue Gastrointestinal: Denies: abdominal pain Musculoskeletal: Denies: back pain Past Medical History Past Medical History: GERD/Reflux, Hyperlipidemia, Osteoarthritis (OA) History of Any Multi-Drug Resistant Organisms: None Reported Past Surgical History: Appendectomy, Section, Hysterectomy, Joint Replacement, Orthopedic Surgery, Tonsillectomy Additional Past Surgical History / Comment(s): RT KNEE ARTHROSCOPY, RT KNEE JOINT REPLACEMENT Past Anesthesia/Blood Transfusion Reactions: No Reported Reaction Past Psychological History: No Psychological Hx Reported Smoking Status: Never smoker - Past Family History Brother(s) Family Medical History: Cancer Additional Family Medical History / Comment(s): POLYCYSTIC KIDNEY DISEASE,breast cancer Sister(s) Family Medical History: Cancer Additional Family Medical History / Comment(s): MELANOMA, POLYCYSTIC KIDNEY DISEASE. Son(s) Family Medical History: Deep Vein Thrombosis (DVT) General Exam Limitations: no limitations General appearance: alert, in no apparent distress Head exam: Present: normocephalic Eye exam: Present: normal appearance Neck exam: Present: normal inspection Respiratory exam: Present: normal lung sounds bilaterally Cardiovascular Exam: Present: regular rate, normal rhythm, normal heart sounds Expanded Peripheral pulses: 2+: Radial (R), Radial (L), Posterior Tibialis (R), Posterior Tibialis (L) GI/Abdominal exam: Present: soft. Absent: tenderness Extremities exam: Present: normal inspection. Absent: pedal edema, calf tender ness Neurological exam: Present: alert Psychiatric exam: Present: normal affect, normal mood Skin exam: Present: normal color Course Vital Signs 04/15/25 04/15/25 18:39 19:41 Temperature 97.9 F Pulse Rate 72 61 Respiratory 16 16 Rate Blood Pressure 178/82 128/66 O2 Sat by Pulse 98 96 Oximetry EKG Findings - EKG Results: EKG: interpreted by ERMD (Left axis. Low QRS voltage. Nonspecific T waves.), sinus rhythm Medical Decision Making - Medical Decision Making Was pt. sent in by a medical professional or institution (, PA, ANATOMIC PATHOLOGY ASSISTANT, urgent care, hospital, or snf...) When possible be specific @ -No Did you speak to anyone other than the patient for history (EMS, parent, family, police, friend...)? What history was obtained from this source @ -No Did you review nursing and triage notes (agree or disagree)? Why? @ -I reviewed and agree with nursing and triage notes Were old charts reviewed (outside hosp., previous admission, EMS record, old EKG, old radiological studies, urgent care reports/EKG's, snf records)? Report findings @ -No old charts were reviewed Differential Diagnosis (chest pain, altered mental status, abdominal pain women, abdominal pain men, vaginal bleeding, weakness, fever, dyspnea, syncope, headache, dizziness, GI bleed, back pain, seizure, CVA, palpatations, mental health, musculoskeletal)? @ -Differential Chest Pain: Stable Angina, Unstable Angina, STEMI, NSTEMI Aortic Dissection, Pneumothorax, Musculoskeletal, Esophageal Spasm GERD, Cholecystitis, Pancreatitis, Zoster, this is not meant to be an all-inclusive list. EKG interpreted by me (3pts min.). @ X-rays interpreted by me (1pt min.). @ -Chest x-ray shows no acute process CT interpreted by me (1pt min.). @ - U/S interpreted by me (1pt. min.). @ -None done What testing was considered but not performed or refused? (CT, X-rays, U/S, labs)? Why? @ -None What meds were considered but not given or refused? Why? @ -None Did you discuss the management of the patient with other professionals (professionals i.e. Dr., PA, ANATOMIC PATHOLOGY ASSISTANT, lab, RT, psych nurse, social research assistant, 5th grade teacher, teacher, chief creative officer, case management rn)? Give summary @ -Case was discussed with practitioner Jael Payan who will admit covering Dr. Washington Was smoking cessation discussed for >3mins.? @ -No Was critical care preformed (if so, how long)? @ -No Were there social determinants of health that impacted care today? How? (Homelessness, low income, unemployed, alcoholism, drug addiction, transportation, low edu. Level, literacy, decrease access to med. care, snf, rehab)? @ -No Was there de-escalation of care discussed even if they declined (Discuss DNR or withdrawal of care, Hospice)? DNR status @ -No What co-morbidities impacted this encounter? (DM, HTN, Smoking, COPD, CAD, Cancer, CVA, ARF, Chemo, Hep., AIDS, mental health diagnosis, sleep apnea, morbid obesity)? @ -None Was patient admitted / discharged? Hospital course, mention meds given and route, prescriptions, significant lab abnormalities, going to OR and other p ertinent info. @ -Patient presents with chest discomfort and some swelling. Initial troponin unremarkable. Patient will be admitted with cardiac consult. Patient reevaluated and is somewhat improved. Admission orders written. Undiagnosed new problem with uncertain prognosis? @ -No Drug Therapy requiring intensive monitoring for toxicity (Heparin, Nitro, Insulin, Cardizem)? @ -No Were any procedures done? @ -No Diagnosis/symptom? @ -Chest pain Acute, or Chronic, or Acute on Chronic? @ -Acute Uncomplicated (without systemic symptoms) or Complicated (systemic symptoms)? @ -Default Side effects of treatment? @ -No Exacerbation, Progression, or Severe Exacerbation? @ -No Poses a threat to life or bodily function? How? (Chest pain, USA, SC, pneumonia, PE, COPD, DKA, ARF, appy, cholecystitis, CVA, Diverticulitis, Homicidal, Suicidal, threat to staff... and all critical care pts) @ -No - Lab Data Result diagrams: 04/15/25 19:04 04/15/25 19:04 Lab Results 04/15/25 04/15/25 04/15/25 Range/Units 19:04 19:04 19:04 WBC 7.73 (4.50-10.00) 10*3/uL RBC 4.83 (4.10-5.20) 10*6/uL Hgb 13.7 (12.0-15.0) g/dL Hct 41.8 (37.2-46.3) % MCV 86.5 (80.0-97.0) fL MCH 28.4 (27.0-32.0) pg MCHC 32.8 (32.0-37.0) g/dL Plt Count 279 (140-440) 10*3/uL MPV 10.9 (9.5-12.2) fL Immature Gran % (Auto) 0.1 % Neutrophils % 41.3 % Lymphocytes % 47.0 % Monocytes % 7.2 % Eosinophils % 3.8 % Basophils % 0.6 % Immature Gran # 0.01 (0.00-0.04) 10*3/uL Neutrophils # 3.19 (1.80-7.70) 10*3/uL Lymphocytes # 3.63 (0.90-5.00) 10*3/uL Monocytes # 0.56 (0.20-1.00) 10*3/uL Eosinophils # 0.29 (0.04-0.35) 10*3/uL Basophils # 0.05 (0.00-0.10) 10*3/uL PT 10.5 (10.0-12.5) sec INR 0.9 (<1.2) APTT 23.2 (22.0-30.0) sec D-Dimer 0.43 (<0.60) mg/L FEU Sodium 138 (137-145) mmol/L Potassium 3.9 (3.5-5.1) mmol/L Chloride 104 (98-107) mmol/L Carbon Dioxide 26 (22-30) mmol/L Anion Gap 8 mmol/L BUN 16 (7-17) mg/dL Creatinine 0.81 (0.52-1.04) mg/dL Est GFR (CKD-EPI)AfAm 85 (>60 ml/min/1.73 sqM) Est GFR (CKD-EPI)NonAf 73 (>60 ml/min/1.73 sqM) Glucose 103 H (74-99) mg/dL Calcium 10.8 H (8.4-10.2) mg/dL Magnesium 2.0 (1.6-2.3) mg/dL Total Bilirubin 0.3 (0.2-1.3) mg/dL AST 24 (14-36) U/L ALT 14 (4-34) U/L Alkaline Phosphatase 116 (38-126) U/L Troponin I (0.000-0.034) ng/mL Total Protein 7.8 (6.3-8.2) g/dL Albumin 4.6 (3.5-5.0) g/dL Amylase 59 (30-110) U/L Lipase 194 (23-300) U/L / Range/Units 19:04 WBC (4.50-10.00) 10*3/uL RBC (4.10-5.20) 10*6/uL Hgb (12.0-15.0) g/dL Hct (37.2-46.3) % MCV (80.0-97.0) fL MCH (27.0-32.0) pg MCHC (32.0-37.0) g/dL Plt Count (140-440) 10*3/uL MPV (9.5-12.2) fL Immature Gran % (Auto) % Neutrophils % % Lymphocytes % % Monocytes % % Eosinophils % % Basophils % % Immature Gran # (0.00-0.04) 10*3/uL Neutrophils # (1.80-7.70) 10*3/uL Lymphocytes # (0.90-5.00) 10*3/uL Monocytes # (0.20-1.00) 10*3/uL Eosinophils # (0.04-0.35) 10*3/uL Basophils # (0.00-0.10) 10*3/uL PT (10.0-12.5) sec INR (<1.2) APTT (22.0-30.0) sec D-Dimer (<0.60) mg/L FEU Sodium (137-145) mmol/L Potassium (3.5-5.1) mmol/L Chloride (98-107) mmol/L Carbon Dioxide (22-30) mmol/L Anion Gap mmol/L BUN (7-17) mg/dL Creatinine (0.52-1.04) mg/dL Est GFR (CKD-EPI)AfAm (>60 ml/min/1.73 sqM) Est GFR (CKD-EPI)NonAf (>60 ml/min/1.73 sqM) Glucose (74-99) mg/dL Calcium (8.4-10.2) mg/dL Magnesium (1.6-2.3) mg/dL Total Bilirubin (0.2-1.3) mg/dL AST (14-36) U/L ALT (4-34) U/L Alkaline Phosphatase (38-126) U/L Troponin I <0.012 (0.000-0.034) ng/mL Total Protein (6.3-8.2) g/dL Albumin (3.5-5.0) g/dL Amylase (30-110) U/L Lipase (23-300) U/L Disposition Clinical Impression: Chest pain Disposition: ADMITTED IP TO THIS HOSP Is patient prescribed a controlled substance at d/c from ED?: No Referrals: Wilmar Washington DO [Primary Care Provider] - 1-2 days Time of Disposition: 19:57
[2025-04-15] MEDS: ASPIRIN 81 MG PO STA (19:03)
[2025-04-15 19:13] LABS: Basophils # (A) 0.05 10*3/uL (0.00-0.10); Basophils % (A) 0.6 %; Eosinophils # (A) 0.29 10*3/uL (0.04-0.35); Eosinophils % (A) 3.8 %; HCT 41.8 % (37.2-46.3); HGB 13.7 g/dL (12.0-15.0); Lymphocytes # (A) 3.63 10*3/uL (0.90-5.00); MCH 28.4 pg (27.0-32.0); MCHC 32.8 g/dL (32.0-37.0); MCV 86.5 fL (80.0-97.0); Mean Platelet Volume 10.9 fL (9.5-12.2); Monocytes # (A) 0.56 10*3/uL (0.20-1.00); Monocytes % (A) 7.2 %; Neutrophils # (A) 3.19 10*3/uL (1.80-7.70); Neutrophils % (A) 41.3 %; Platelet Count 279 10*3/uL (140-440); RBC 4.83 10*6/uL (4.10-5.20); RDW 13.5 % (11.5-14.5); WBC 7.73 10*3/uL (4.50-10.00)
--- NOTE | 2025-04-15 19:26 | XR ---
EXAMINATION TYPE: XR chest 2V DATE OF EXAM: 04/15/2025 7:17 PM COMPARISON: None TECHNIQUE: XR chest 2V Frontal and lateral views of the chest. CLINICAL INDICATION:Female, 70 years old with history of Chest Pain; FINDINGS: Patient is rotated which limits evaluation. Lungs/Pleura: There is no evidence of pleural effusion, focal consolidation, or pneumothorax. Pulmonary vascularity: Unremarkable. Heart/mediastinum: Cardiomediastinal silhouette is unremarkable. Musculoskeletal: Multiple level degenerative disc disease changes seen throughout the spine. IMPRESSION: No acute cardiopulmonary disease/process. [facility], , 04/15/2025 7:23 PM
[2025-04-15 19:29] LABS: INR 0.9 (<1.2); Partial Thromboplastin Time 23.2 sec (22.0-30.0); Prothrombin Time 10.5 sec (10.0-12.5)
[2025-04-15 19:30] LABS: ALT 14 U/L (4-34); AST 24 U/L (14-36); African American GFR (CKD) 85 (>60 ml/min/1.73 sqM); Albumin 4.6 g/dL (3.5-5.0); Alkaline Phosphatase 116 U/L (38-126); Amylase 59 U/L (30-110); Anion Gap 8 mmol/L; Blood Urea Nitrogen 16 mg/dL (7-17); Calcium 10.8 mg/dL (8.4-10.2); Carbon Dioxide 26 mmol/L (22-30); Chloride 104 mmol/L (98-107); Glucose 103 mg/dL (74-99); Lipase 194 U/L (23-300); Non-African American GFR(CKD) 73 (>60 ml/min/1.73 sqM); Potassium 3.9 mmol/L (3.5-5.1); Sodium 138 mmol/L (137-145); Total Bilirubin 0.3 mg/dL (0.2-1.3); Total Protein 7.8 g/dL (6.3-8.2)
[2025-04-15] MEDS: NITROGLYCERIN SL TABS 0.4 MG TAB SUBLINGUAL STA (19:43)
[2025-04-15] MEDS ORDERED: NITROGLYCERIN SL TABS 0.4 MG TAB SUBLINGUAL PRN (19:57)
[2025-04-15] MEDS: NITROGLYCERIN OINT 1 INCH/GM PACKET TOPICAL SCH (20:30)
[2025-04-15] MEDS: ATORVASTATIN 20 MG TAB PO SCH (23:20)
[2025-04-16 08:37] LABS: LDL Cholesterol,Calculated 98.4 mg/dL (0.0-131.0)
[2025-04-16] MEDS: lisinopriL 5 MG TAB PO SCH (08:49)
[2025-04-16] MEDS: ASPIRIN 81 MG PO SCH (08:49)
[2025-04-16] MEDS: PANTOPRAZOLE 40 MG TABLET PO SCH (08:49)
[2025-04-16] MEDS ORDERED: ASPIRIN 325 MG TAB PO SCH (09:00)
--- NOTE | 2025-04-16 09:30 | P.CRDCN ---
History of Present Illness History of present illness: HISTORY OF PRESENT ILLNESS: This is a 70-year-old female with a past medical history significant for hypertension and hyperlipidemia. Patient does not follow with a systems support officer. We have been asked to see the patient in consultation for chest pain. Patient examined at the bedside. Patient states yesterday she began to have chest discomfort. She states the pain was in the middle of her chest. She reports the pain radiated to her left arm. She states the pain lasted for approximately 2 hours. She describes the pain as a sharp pain. She also reports she was feeling diaphoretic. She denies having any chest pain this morning. DIAGNOSTICS: - EKG reveals sinus mechanism with nonspecific ST-T wave changes. - Chest xray negative for acute process - Laboratory data: WBC 7.73. Hemoglobin 13.7. Platelet count 279. D-dimer 0.43. Sodium 138. Potassium 3.9. BUN 16. Creatinine 0.81. Troponin negative x 3. - Current home cardiac medications include lisinopril 5 mg daily and rosuvastatin 10 mg at night. - No previous echocardiogram, stress test, or cardiac catheterization available in EMR for review REVIEW OF SYSTEMS: At the time of my exam: CONSTITUTIONAL: Denies fever or chills. HEENT: Denies blurred vision, vision changes, or eye pain. Denies hemoptysis CARDIOVASCULAR: Denies chest pain. Denies orthopnea. Denies PND. Denies palpitations RESPIRATORY: Denies shortness of breath. GASTROINTESTINAL: Denies abdominal pain. Denies nausea or vomiting. HEMATOLOGIC: Denies bleeding disorders. GENITOURINARY: Denies any blood in urine. SKIN: Denies pruitis. Denies rash. PHYSICAL EXAM: VITAL SIGNS: Reviewed. GENERAL: Well-developed in no acute distress. HEENT: Head is normocephalic. Pupils are equal, round. Sclerae anicteric. Mucous membranes of the mouth are moist. Neck supple. No JVD or thyromegaly LUNGS: Respirations even and unlabored. Lungs essentially clear to auscultation bilaterally. HEART: Regular rate and rhythm. S1 and S2 heard. ABDOMEN: Soft. Nondistended. Nontender. EXTREMITIES: Normal range of motion. No clubbing or cyanosis. Peripheral pulses intact. No lower extremity edema NEUROLOGIC: Awake and alert. Oriented x 3. ASSESSMENT: Chest pain, troponin negative x 3 Hypertension Hyperlipidemia Obesity: BMI 30.9 PLAN: An acute coronary event has been ruled out Obtain 2D echo to assess cardiac structure and function Resume home cardiac medications Decrease aspirin to 81 mg daily Patient to undergo stress echocardiogram today If negative, patient may be discharged home from a cardiac standpoint Further recommendations pending patient course Nurse practitioner note has been reviewed by physician. Signing provider agrees with the documented findings, assessment, and plan of care documented by AUTOMATION TEST DEVELOPER as a scribe. Past Medical History Past Medical History: GERD/Reflux, Hyperlipidemia, Osteoarthritis (OA) History of Any Multi-Drug Resistant Organisms: None Reported Past Surgical History: Appendectomy, Section, Hysterectomy, Joint Replacement, Orthopedic Surgery, Tonsillectomy Additional Past Surgical History / Comment(s): RT KNEE ARTHROSCOPY, RT KNEE JOINT REPLACEMENT, Left knee joint replacement Past Anesthesia/Blood Transfusion Reactions: No Reported Reaction Past Psychological History: No Psychological Hx Reported Smoking Status: Never smoker Past Alcohol Use History: Occasional Past Drug Use History: None Reported - Past Family History Brother(s) Family Medical History: Cancer Additional Family Medical History / Comment(s): POLYCYSTIC KIDNEY DISEASE,breast cancer Sister(s) Family Medical History: Cancer Additional Family Medical History / Comment(s): MELANOMA, POLYCYSTIC KIDNEY DISEASE. Son(s) Family Medical History: Deep Vein Thrombosis (DVT) Medications and Allergies Home Medications Medication Instructions Recorded Confirmed Type Ergocalciferol [Vitamin D2 (1250 1,250 mcg PO TUFR 03/23/22 04/15/25 History Mcg = 53179 Iu)] Omeprazole 20 mg PO DAILY 04/15/25 04/15/25 History Rosuvastatin [Crestor] 10 mg PO HS 04/15/25 04/15/25 History lisinopriL [Zestril] 5 mg PO DAILY 04/15/25 04/15/25 History Allergies Allergy/AdvReac Type Severity Reaction Status Date / Time No Known Allergies Allergy Verified 04/15/25 20:16 Physical Exam Vitals: Vital Signs Temp Pulse Pulse Resp BP BP Pulse Ox 04/16/25 01:35 98 F 59 L 16 121/67 96 04/15/25 22:28 98.1 F 68 16 121/63 98 04/15/25 19:41 61 16 128/66 96 04/15/25 18:39 97.9 F 72 16 178/82 98 Intake and Output 04/15/25 04/16/25 04/16/25 22:59 06:59 14:59 Other: Voiding Method Toilet # Voids 2 2 Weight 81.647 kg 81.647 kg Results 04/15/25 19:04 04/15/25 19:04 Cardiac Enzymes 04/15/25 04/15/25 04/15/25 Range/Units 19:04 19:04 23:33 AST 24 (14-36) U/L Troponin I <0.012 <0.012 (0.000-0.034) ng/mL 04/16/25 Range/Units 01:05 AST (14-36) U/L Troponin I <0.012 (0.000-0.034) ng/mL Coagulation 04/15/25 Range/Units 19:04 PT 10.5 (10.0-12.5) sec APTT 23.2 (22.0-30.0) sec CBC 04/15/25 Range/Units 19:04 WBC 7.73 (4.50-10.00) 10*3/uL RBC 4.83 (4.10-5.20) 10*6/uL Hgb 13.7 (12.0-15.0) g/dL Hct 41.8 (37.2-46.3) % Plt Count 279 (140-440) 10*3/uL Comprehensive Metabolic Panel 04/15/25 Range/Units 19:04 Sodium 138 (137-145) mmol/L Potassium 3.9 (3.5-5.1) mmol/L Chloride 104 (98-107) mmol/L Carbon Dioxide 26 (22-30) mmol/L BUN 16 (7-17) mg/dL Creatinine 0.81 (0.52-1.04) mg/dL Glucose 103 H (74-99) mg/dL Calcium 10.8 H (8.4-10.2) mg/dL AST 24 (14-36) U/L ALT 14 (4-34) U/L Alkaline Phosphatase 116 (38-126) U/L Total Protein 7.8 (6.3-8.2) g/dL Albumin 4.6 (3.5-5.0) g/dL Current Medications Generic Name Dose Route Start Last Admin Trade Name Freq PRN Reason Stop Dose Admin Atorvastatin Calcium 20 mg 04/15/25 21:00 04/15/25 23:20 Atorvastatin 20 Mg Tab PO 20 mg HS MEJIA Administration Ergocalciferol 1,250 mcg 04/16/25 09:00 Ergocalciferol 1,250 Mcg (50,000 Iu) Capsule PO TUFR [facility] Lisinopril 5 mg 04/16/25 09:00 Lisinopril 5 Mg Tab PO DAILY [facility] Nitroglycerin 0.4 mg 04/15/25 19:57 Nitroglycerin Sl Tabs 0.4 Mg Tab SUBLINGUAL Q5M PRN Chest Pain Pantoprazole Sodium 40 mg 04/16/25 07:30 Pantoprazole 40 Mg Tablet PO AC-BRKFST [facility] Intake and Output 04/15/25 04/16/25 04/16/25 22:59 06:59 14:59 Other: Voiding Method Toilet # Voids 2 2 Weight 81.647 kg 81.647 kg 04/15/25 19:04 04/15/25 19:04
[2025-04-16] MEDS: ERGOCALCIFEROL 1,250 MCG (50,000 IU) CAPSULE PO SCH (10:34)
--- NOTE | 2025-04-16 18:44 | CA ---
Transthoracic Echo Report Name: Genoveva Escobar Age: 70 Gender: F : 1955 Exam Date: 04/16/2025 11:06 Exam Location: [place] [facility] Ht (in): 64 Wt (lb): 180 Ordering Physician: Juliocesar Kelley DO Attending/Referring Phys: Enrober Tender Lexa Perry RDCS Procedure CPT: Indications: CP Cardiac Hx: Technical Quality: Good Contrast 1: Definity Total Dose (mL): 2 Contrast 2: Total Dose (mL): MEASUREMENTS (Male / Female) Normal Values 2D ECHO LV Diastolic Diameter PLAX 5.1 cm 4.2 - 5.9 / 3.9 - 5.3 cm LV Systolic Diameter PLAX 3.6 cm IVS Diastolic Thickness 0.8 cm 0.6 - 1.0 / 0.6 - 0.9 cm LVPW Diastolic Thickness 0.8 cm 0.6 - 1.0 / 0.6 - 0.9 cm LV Relative Wall Thickness 0.3 LVOT Diameter 1.6 cm LA Systolic Diameter LX 3.9 cm 3.0 - 4.0 / 2.7 - 3.8 cm LV Diastolic Volume MOD BP 116.3 cm??? 67 - 155 / 56 - 104 cm??? LV Systolic Volume MOD BP 41.2 cm??? 22 - 58 / 19 - 49 cm??? LV Ejection Fraction MOD BP 64.6 % >= 55 % LV Cardiac Index MOD BP 2314.3 cm???/min???m??? LV Diastolic Volume MOD 4C 113.4 cm??? LV Systolic Volume MOD 4C 38.8 cm??? LV Ejection Fraction MOD 4C 65.7 % LV Cardiac Index MOD 4C 2294.8 cm???/min???m??? LV Diastolic Length 4C 8.3 cm LV Systolic Length 4C 6.4 cm LV Diastolic Volume MOD 2C 108.0 cm??? LV Systolic Volume MOD 2C 38.0 cm??? LV Ejection Fraction MOD 2C 64.8 % LV Cardiac Index MOD 2C 2153.4 cm???/min???m??? LV Diastolic Length 2C 9.3 cm LV Systolic Length 2C 7.4 cm LA Volume 86.9 cm??? 18 - 58 / 22 - 52 cm??? LA Volume Index 44.6 cm???/m??? 16 - 28 cm???/m??? DOPPLER MV Area PHT 2.8 cm??? Mitral E Point Velocity 75.1 cm/s Mitral A Point Velocity 81.0 cm/s Mitral E to A Ratio 0.9 MV Deceleration Time 275.2 ms TR Peak Velocity 263.3 cm/s TR Peak Gradient 27.7 mmHg Right Atrial Pressure 10.0 mmHg Pulmonary Artery Systolic Pressu 37.7 mmHg Right Ventricular Systolic Press 37.7 mmHg FINDINGS Left Ventricle Left ventricular ejection fraction is estimated at 60-65%. Mildly increased left ventricular diastolic volume. No obvious regional wall motion abnormalities. Left ventricular cavity size normal. Left ventricular wall thickness normal. Right Ventricle Right ventricular dilatation. Mild pulmonary hypertension. Right ventricular systolic pressure estimated at 38 mm hg. Right Atrium Severe right atrial dilatation. Interatrial septum aneurysm. Left Atrium Severely increased left atrial volume. Mildly increased left atrial area. Mitral Valve Structurally normal mitral valve. No mitral stenosis. Trace mitral regurgitation. Aortic Valve Trileaflet aortic valve. Thickened aortic valve without stenosis. No aortic regurgitation. Tricuspid Valve Structurally normal tricuspid valve. No tricuspid stenosis. Moderate tricuspid regurgitation. Pulmonic Valve Structurally normal pulmonic valve. No pulmonic regurgitation. Trace pulmonic regurgitation. Pericardium No pericardial effusion. Aorta Aortic annulus normal. CONCLUSIONS Normal LV systolic function Mild mitral regurgitation Moderate tricuspid regurgitation Mild pulmonary hypertension Previewed by: Dr. Yonatan Cristina MD (Electronically Signed) Final Date: 16 April 2025 18:43
--- NOTE | 2025-04-16 18:48 | CA ---
Stress Echo Report Genoveva Escoabr Age: 70 Gender: F : 1955 Exam Date: 04/16/2025 09:37 Exam Location: [facility] Ht (in): 64 Wt (lb): 180 Ordering Physician: Hortensia Guthrie Referring Physician: [id number] Mcneil Bolt Sorter: GER Technologist Procedure CPT: Indication: CP ICD-9 Codes: Rhythm: Patient History: CHEST PAIN, HTN, HYPERCHOLESTEROLEMIA, FAMILY HX OF HEART DISEASE Cardiac Medications: Medications in past 24 hours: Contrast: Stress Results Protocol: Robby Total dose(mL): Exercise Duration (min:sec): 6:[address] Depression (mm): Angina Score: Ramires Score: METS: 7.3 Resting HR: 81 Resting BP: 135 / 78 Peak HR: 139 Peak BP: 179 / 73 Max Predicted HR: 148 94 % Max Predicted HR Target HR: 126 Double Product: [id number] Stress Summary: BP Response: Reason for Termination: MAX EXERTION/TARGET HR Cardiac Symptoms: NO SYMPTOMS ECG Analysis Resting ECG: Stress ECG: Arrhythmia: Echo Analysis Resting Echo: Peak Echo Analysis: MEASUREMENTS (Male/Female) Normal Values CONCLUSIONS Normal stress echocardiogram Dr. Yonatan Cristina MD (Electronically Signed) Final Date: 16 April 2025 18:47
[2025-04-17 07:32] VITALS: RESP 15; TEMP 97.9
[2025-04-17 09:35] VITALS: BP 105/67; PULSE 75
--- NOTE | 2025-04-17 21:03 | P.PN ---
Subjective Progress Note Date: 04/17/25 HISTORY OF PRESENT ILLNESS: This is a 70-year-old female with a past medical history significant for hy pertension and hyperlipidemia. 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 We have been asked to see the patient in consultation for chest pain. Patient examined at the bedside. Patient states yesterday she began to have chest discomfort. She states the pain was in the middle of her chest. She reports the pain radiated to her left arm. She states the pain lasted for approximately 2 hours. She describes the pain as a sharp pain. She also reports she was feeling diaphoretic. She denies having any chest pain this morning. DIAGNOSTICS: - EKG reveals sinus mechanism with nonspecific ST-T wave changes. - Chest xray negative for acute process - Laboratory data: WBC 7.73. Hemoglobin 13.7. Platelet count 279. D-dimer 0.43. Sodium 138. Potassium 3.9. BUN 16. Creatinine 0.81. Troponin negative x 3. - Current home cardiac medications include lisinopril 5 mg daily and rosuvastatin 10 mg at night. - No previous echocardiogram, stress test, or cardiac catheterization available in EMR for review Progress note 04/17/2025 Seen and examined at bedside this a.m. Underwent treadmill echo stress test and echocardiogram yesterday which was uneventful. She denies any chest pain chest pressure or shortness of breath at this time Blood pressure is well controlled. PHYSICAL EXAM: VITAL SIGNS: Reviewed. GENERAL: Well-developed in no acute distress. HEENT: Head is normocephalic. Pupils are equal, round. Sclerae anicteric. Mucous membranes of the mouth are moist. Neck supple. No JVD or thyromegaly LUNGS: Respirations even and unlabored. Lungs essentially clear to auscultation bilaterally. HEART: Regular rate and rhythm. S1 and S2 heard. ABDOMEN: Soft. Nondistended. Nontender. EXTREMITIES: Normal range of motion. No clubbing or cyanosis. Peripheral pulses intact. No lower extremity edema NEUROLOGIC: Awake and alert. Oriented x 3. ASSESSMENT: Chest pain, troponin negative x 3 Hypertension Hyperlipidemia Obesity: BMI 30.9 PLAN: Patient is cleared from cardiovascular standpoint Recommend outpatient follow-up Objective - Vital Signs Vital signs: Vital Signs Temp 97.9 F 04/17/25 07:00 Pulse 75 04/17/25 09:34 Resp 15 04/17/25 07:00 BP 105/67 04/17/25 09:34 Pulse Ox 97 04/17/25 07:00 FiO2 Intake & Output 04/17/25 04/17/25 04/18/25 06:59 18:59 06:59 Other: Voiding Method Toilet # Voids 2 - Labs CBC & Chem 7: 04/15/25 19:04 04/15/25 19:04
== END 2025-04-17 13:50 | disposition home or self-care (01) ==
LOC: EC 18:35 → 6NMEDSUR 19:57
PROVIDERS: ADMIT Hospitalist; ATTEND Hospitalist
DX: R07.89 Other chest pain (principal); E78.5 Hyperlipidemia, unspecified; K21.9 Gastro-esophageal reflux disease without esophagitis; I10 Essential (primary) hypertension; E66.9 Obesity, unspecified; Z68.30 Body mass index [BMI] 30.0-30.9, adult; Z79.899 Other long term (current) drug therapy
CPT/HCPCS: 99285; 36415; 93005; 93351; 85379; 80061; 80053; 82150; 83690; 83735; 84484 ×2; 85025; 85610; 85730; 71046; G0378 ×3; C8929; 93306